=== PATIENT | female | born 1965 | race Caucasian/White ===

== ENCOUNTER 2023-08-14 07:38 | Day surgery (SDC) | payer MEDICAID ==
[~2023-08-14] VITALS: Ht 157.5 cm; Wt 99.3 kg
[2023-08-14] MEDS ORDERED: fentaNYL CITRATE/PF 100 MCG/2 ML AMP ONE ×2 (08:39→09:29)
[2023-08-14] MEDS ORDERED: MIDAZOLAM HCL 5 MG/5 ML VIAL ONE ×2 (08:39→09:29)
[2023-08-14 09:10] VITALS: O2SAT 99
[2023-08-14] MEDS ORDERED: DIPHENHYDRAMINE INJ 50 MG/ML VIAL ONE (09:34)
[2023-08-14 16:43] VITALS: BP_SYST 97; PULSE 58; RESP 12
== END 2023-08-14 11:00 | disposition home or self-care (01) ==
LOC: SDS 07:38 → SMU 07:39 → SDS 11:00
PROVIDERS: ATTEND Internal Medicine
DX: R10.9 Unspecified abdominal pain (principal); E66.9 Obesity, unspecified; Z86.010 Personal history of colon polyps; J45.909 Unspecified asthma, uncomplicated; G47.30 Sleep apnea, unspecified; M19.90 Unspecified osteoarthritis, unspecified site; Z98.891 History of uterine scar from previous surgery; Z95.1 Presence of aortocoronary bypass graft; Z79.899 Other long term (current) drug therapy; Z68.41 Body mass index [BMI] 40.0-44.9, adult; Z91.040 Latex allergy status; Z88.0 Allergy status to penicillin
CPT/HCPCS: 45330; G0378; J1200; J2250; J3010; G0104